=== PATIENT | male | born 1970 | race Caucasian/White ===

== ENCOUNTER → 2021-01-24 | Outpatient (CLI) | payer OTHER ==
[~2021-01-24] MED LIST: IBUPROFEN800 MG PO; PENVEE K 500 M500 MG PO; ZOFRAN4 MG PO
== END ==
LOC: EXRD 14:47
DX: R94.4 Abnormal results of kidney function studies (principal); K76.0 Fatty (change of) liver, not elsewhere classified
CPT/HCPCS: 76775